=== PATIENT | female | born 1955 | race Caucasian/White ===

== ENCOUNTER 2018-03-19 11:19 | Emergency (ER) | payer OTHER ==
[~2018-03-19] VITALS: Ht 160 cm; Wt 76.7 kg
[~2018-03-19 11:19] MED LIST: CLONAZEPAM PO; FERROUS SULFAT325 M1 PO; NORCO 7.5/3257.5 MG PO; PROPRANOLOL ER80 MG PO; SERTRALINE50 MG PO; TOP100 PO; TOPAMAX PO; VESICARE10 MG PO
[2018-03-19 11:32] VITALS: Ht 160 cm; Wt 76.7 kg
[2018-03-19 13:10] LABS: BASOPHIL % 0.9 % (0-2); PLATELET COUNT 218 x10^3mcL (130-400)
[2018-03-19 13:36] LABS: CALCIUM 9.5 mg/dL (8.5-10.1); CARBON DIOXIDE 27.4 mmol/L (21-32); CREATININE SERUM 1.5 mg/dL (0.6-1.0)
[2018-03-19 13:49] LABS: ALBUMIN 3.8 g/dL (3.4-5.0); BILIRUBIN TOTAL 0.58 mg/dL (0.20-1.00); TOTAL PROTEIN, SERUM 7.4 g/dL (6.4-8.2)
[2018-03-19 14:00] LABS: microscopic required? YES; urine erythrocyte TRACE (NEGATIVE)
[2018-03-19 14:51] VITALS: BP 136/68
== END 2018-03-19 14:51 | disposition home or self-care (01) ==
LOC: ED 11:19
PROVIDERS: Emergency Medicine
DX: N39.0 Urinary tract infection, site not specified (principal); K57.90 Diverticulosis of intestine, part unspecified, without perforation or abscess without bleeding; I10 Essential (primary) hypertension; Z86.73 Personal history of transient ischemic attack (TIA), and cerebral infarction without residual deficits; Z91.041 Radiographic dye allergy status; Z88.8 Allergy status to other drugs, medicaments and biological substances
CPT/HCPCS: 87046; 87046-59; J7030; J7040; Q0092